=== PATIENT | male | born 1965 | race Caucasian/White ===

== ENCOUNTER 2024-01-18 07:59 | Outpatient (RCR) | payer BC, SELFPAY ==
--- NOTE | ~2024-01-18 | XR_ITS ---
EXAMINATION: XR FOOT, LEFT CLINICAL INFORMATION: Patient states wound on bottom of the ball of foot as well as on top of foot. COMPARISON: None available. TECHNIQUE: AP, lateral, and oblique views of the left foot. FINDINGS: Patchy demineralization of the bony structures, particularly of the 2nd, 3rd, 4th and 5th toes and 5th MCP joint region. Moderate degenerative changes in the 1st metatarsophalangeal joint with joint space narrowing, hypertrophic change and medial focal soft tissue swelling/bunion. Extensive vascular calcifications. Tiny plantar calcaneal spur. Mild dorsal calcaneal hypertrophy. Degenerative changes with hypertrophic change at the metatarsophalangeal joints. XR/XR foot LT min 3V IMPRESSION: 1. Moderate degenerative changes 1st metatarsophalangeal joint with medial focal soft tissue swelling/bunion. 2. Patchy demineralization of the bony structures, particularly of the 2nd, 3rd, 4th and 5th toes and 5th MCP joint region. 3. Correlation with clinical exam recommended to determine further management. Recommend followup imaging in 10-14 days if fracture is suspected.
--- NOTE | ~2024-01-18 | XR_ITS ---
EXAMINATION: XR FOOT, LEFT CLINICAL INFORMATION: Left foot attention for nonhealing wound. COMPARISON: January 18, 2024. TECHNIQUE: AP, lateral, and oblique views of the left foot. FINDINGS: Radiopaque marker placed by the technologist to indicate the area of concern as indicated by the patient along the fifth toe. Visualization is somewhat limited due to overlying bandages. Curvilinear density in the soft tissues along the plantar aspect of the metatarsal heads, best appreciated on the lateral view, possibly related to trauma versus degenerative process. Possible fragmentation/deossification of sesamoid bones on lateral view difficult to fully characterize due to overlying soft tissues. Correlation with clinical exam recommended with possible additional imaging with MRI if there is concern for osteomyelitis or other process. Hypertrophic change along the dorsal aspect of the tarsometatarsal joint/midfoot region. Patchy demineralization of the bony structures, particularly of the 2nd, 3rd, 4th and 5th toes and 5th MCP joint region. Moderate degenerative changes in the 1st metatarsophalangeal joint with joint space narrowing, hypertrophic change and medial focal soft tissue swelling/bunion. Extensive vascular calcifications. Tiny plantar calcaneal spur. Mild dorsal calcaneal hypertrophy. Degenerative changes with hypertrophic change at the metatarsophalangeal joints. XR/XR foot LT min 3V IMPRESSION: 1. Curvilinear density in the soft tissues along the plantar aspect of the metatarsal heads, best appreciated on the lateral view, possibly related to trauma versus degenerative process. Possible fragmentation/deossification of sesamoid bones on lateral view difficult to fully characterize due to overlying soft tissues. Correlation with clinical exam recommended with possible additional imaging with MRI if there is concern for osteomyelitis or other process. 2. Patchy demineralization of the bony structures, particularly of the 2nd, 3rd, 4th and 5th toes and 5th MCP joint region. 3. Correlation with clinical exam recommended to determine further management.
[2024-03-15 11:23] LABS: MANUAL DIFF FLAG NO
[2024-03-15 11:53] LABS: Basophils Absolute Auto 0.1 X10*3/uL (0.0-0.2); Eosinophils Absolute Auto 0.3 X10*3/uL (0.0-0.4); Eosinophils Percent Auto 3.2 % (0-4); Hematocrit 29.5 % (42.0-52.0); Hemoglobin 9.8 g/dl (14.0-18.0); Imm Gran Abs Auto 0.03 X10*3/uL (0.00-0.03); Imm Gran Pct Auto 0.4 % (0.0-0.4); Lymphocytes Absolute Auto 0.9 X10*3/uL (1.2-4.9); Lymphocytes Percent Auto 10.6 % (20-40); Mean Corpuscular HGB Conc 33.2 g/dl (31.0-36.0); Mean Corpuscular Hemoglobin 29.6 pg (27.0-33.0); Mean Corpuscular Volume 89.1 fL (80.0-98.0); Mean Platelet Volume 9.5 fL (9.4-12.4); Monocytes Absolute Auto 0.7 X10*3/uL (0.1-1.2); Monocytes Percent Auto 7.8 % (2-11); Neutrophils Absolute Auto 6.5 x10*3/uL (2.0-8.3); Platelet Count 124 X10*3/uL (160-400); Red Blood Count 3.31 X10*6/uL (4.60-5.80); Red Cell Distribution Width 13.6 % (11.0-16.0); White Blood Count 8.4 X10*3/uL (4.8-10.8)
[2024-03-15 12:35] LABS: Erythrocyte Sedimentation Rate 6 MM/HR (0-15)
[2024-03-15 13:06] LABS: Anion Gap 16 (12-20); Blood Urea Nitrogen 48 mg/dL (9-16); C Reactive Protein 0.31 mg/dL (< or = 0.50); Calcium 9.6 mg/dL (8.4-10.2); Carbon Dioxide 23 mmol/L (22-29); Chloride 98 mmol/L (96-108); Estimated Glomerular Filt Rate 19; Glucose Random 110 mg/dL (60-115); Potassium 5.1 mmol/L (3.3-5.1); Sodium 132 mmol/L (135-145)
== END 2024-09-27 13:56 | disposition home or self-care (01) ==
LOC: HO.WCC 07:59
PROVIDERS: Physician Assistant; PCP Internal Medicine; Visit Provider Surgery
DX: I87.312 Chronic venous hypertension (idiopathic) with ulcer of left lower extremity (principal); L97.525 Non-pressure chronic ulcer of other part of left foot with muscle involvement without evidence of necrosis; M86.472 Chronic osteomyelitis with draining sinus, left ankle and foot; L84 Corns and callosities; R60.0 Localized edema; N18.9 Chronic kidney disease, unspecified; K70.31 Alcoholic cirrhosis of liver with ascites; G60.9 Hereditary and idiopathic neuropathy, unspecified; Z79.899 Other long term (current) drug therapy
CPT/HCPCS: 10060; 11042; 11043; 11044; 36415; 73630; 80048; 84134; 85025; 85652; 86140; 87070; 87077; 87147; 87205; 88305; 88311; 97597; 99213

== ENCOUNTER 2024-04-09 14:47 | Outpatient (REF) | payer BC, SELFPAY ==
--- NOTE | ~2024-04-09 | MR_ITS ---
EXAMINATION: MR FOOT WITHOUT AND WITH CONTRAST, LEFT CLINICAL INFORMATION: Nonhealing wounds left foot evaluate for osteomyelitis. Correlate with clinical COMPARISON: X-rays of the left foot 03/15/2024 and 01/18/2024. TECHNIQUE: MRI of the left foot was performed before and after the intravenous administration of 9.5 mL Gadavist on a high-field scanner. [id number] includes the midfoot and forefoot given the clinical presentation and history given. FINDINGS: The findings are partially limited because of image degrading motion artifact throughout most of the exam. Great toe: Probable ulceration along the plantar medial aspect of the great toe at the level of the first metatarsophalangeal joint. This is estimated to measure 18 mm transverse and 18 mm craniocaudal. There is additional abnormal signal in the subcutaneous soft tissues deep to the area of suspected ulceration, and noted circumferentially about the great toe beginning at the level of the distal first metatarsal extending to the distal phalanx. The soft tissue partially enhances compatible with a combination of edema and cellulitis. First metatarsophalangeal joint: There is a joint effusion and synovitis with a dorsal subluxation of the proximal phalanx with respect to the head of the metacarpal tarsal. There is diffuse abnormal signal throughout most of the first metatarsal and proximal phalanx with concomitant enhancement. Suspect subtle erosions along the medial cortex of the head of the and base of the first proximal phalanx. I do not see the medial sesamoid. Question secondary to erosive change or surgically absent Diffuse abnormal signal with concomitant enhancement within the fibular sesamoid There is some areas of nonenhancement within the bone in the metatarsal head communicating with areas of nonenhancement medial and plantar to the head of the metatarsal. These areas seem to be communicating likely reflect abscess formation. Medially the fluid collection measures 10 x 8 x 20 mm period Plantarly the fluid collection extends distally to the level of the distal first metatarsal having the appearance of a sinus tract or abscess. This measures up to 3.4 cm proximal to distal 0.8 cm transverse and 8 cm dorsal to plantar. Possible involvement in the flexor hallucis tendon sheath with increased fluid and tenosynovitis. The tendon appears absent in this area. See below. The tendon appears to be torn and retracted Fourth digit: There is diffuse marrow signal abnormality with concomitant enhancement which appears to be the proximal and middle phalanx. The joint is not well demonstrated possibly due to fracture or erosion. There is generalized abnormal signal in the surrounding subcutaneous soft tissues with concomitant enhancement compatible with cellulitis of. Possible but not definite ulceration along lateral aspect of the skin/subcutaneous soft tissues. The remaining bone and joints are normal. There is generalized abnormal signal throughout the muscles of the foot with some fatty infiltration and increased T2 signal with partial enhancement compatible denervation myositis and/or concomitant infectious myositis. Flexor hallucis longus: The tendon appears distally torn and retracted back to level of the midportion of the metatarsal. There is fluid present within the tendon sheath with enhancement of the tendon sheath compatible with infectious tenosynovitis There is prominent T2 signal throughout the dorsal medial subcutaneous soft tissues with partial enhancement compatible with combination of edema and scattered areas of cellulitis. MR/MR foot LT wo/w con IMPRESSION: Great toe: Septic arthritis of the first metatarsophalangeal joint with concomitant osteomyelitis of the first metatarsal and proximal phalanges and remaining fibular sesamoid. Surrounding cellulitis. Probable plantar ulceration. Probable adjacent abscesses medial to the joint and plantar to the joint with a plantar collection extending distally to the level of the distal proximal phalanx. Suspect additional infectious tenosynovitis of the flexor hallucis longus tendon sheath. The tendon appears torn and retracted back to level of the midportion of the metatarsal. Fourth digit: Findings compatible with osteomyelitis of the proximal middle phalanx with probable adjacent ulceration and surrounding cellulitis. Abnormality the muscles compatible with infectious myositis or denervation myositis. Generalized abnormality in the subcutaneous soft tissues compatible with a combination of edema and cellulitis.
[2024-04-09] MEDS: gadobutroL 10 ML VIAL IVPUSH (16:20)
== END 2024-04-09 14:48 | disposition home or self-care (01) ==
LOC: HO.MRI 14:47
PROVIDERS: Visit Provider Physician Assistant
DX: L97.525 Non-pressure chronic ulcer of other part of left foot with muscle involvement without evidence of necrosis (principal); I87.2 Venous insufficiency (chronic) (peripheral)
CPT/HCPCS: 73720; A9585